=== PATIENT | male | born 1970 | race Caucasian/White ===

== ENCOUNTER 2016-04-17 08:17 | Inpatient (IN) | payer OTHER ==
[2016-04-17 09:04] VITALS: BMI 22.4
--- NOTE | 2016-04-17 13:12 | HP ---
COWS - Scale Resting Pulse: 1= MD 81-100 Sweatin= Chills/Flushing Restless Observation: 3= Extraneous Movement Pupil Size: 0= Normal to Room Light Bone or Joint Aches: 4=Acute Joint/Muscle Pain Runny Nose/ Eye Tearin= Runny Nose/Eyes GI Upset > 30mins: 3= Vomiting/Diarrhea Tremor Observation: 2= Slight Tremor Visible Yawning Observation: 2= >3x During Session Anxiety or Irritability: 2=Irritable/Anxious Goose Flesh Skin: 3=Piloerection COWS Score: 23 CIWA Score - CIWA Score Nausea/Vomitin-No Nausea/No Vomiting Muscle Tremors: 4-Moderate,w/Arms Extend Anxiety: 4-Mod. Anxious/Guarded Agitation: 4-Moderately Restless Paroxysmal Sweats: 1-Minimal Palms Moist Orientation: 0-Oriented Tacttile Disturbances: 3-Moderate Itch/Numb/Burn Auditory Disturbances: 0-None Visual Disturbances: 0-None Headache: 2-Mild CIWA-Ar Total Score: 18 Admission ROS S - HPI Chief Complaint: DETOX TX FOR ALCOHOL AND HEROIN DEPENDENCE Allergies/Adverse Reactions: Allergies Allergy/AdvReac Type Severity Reaction Status Date / Time haloperidol lactate Allergy Severe seizure Verified 04/17/16 09:47 [From [facility]] History of Present Illness: 45 Y/O MALE WITH A HX OF ALCOHOL, HEROIN,COCAINE AND MARIJUANA DEPENDENCE SEEKING DETOX TX Exam Limitations: No Limitations - Ebola screening Have you traveled outside of the country in the last 21 days: No Have you had contact with anyone from an Ebola affected area: No Have you been sick,other than usual withdrawal symptoms: No Do you have a fever: No - Review of Systems Constitutional: Chills, Loss of Appetite, Night Sweats, Changes in sleep, Unintentional Wgt. Loss EENT: reports: Blurred Vision, Tearing, Nose Congestion, Dental Problems ( MISSING TEETH) Respiratory: reports: No Symptoms reported, Shortness of Breath (ASTHMA HX), Wheezing Cardiac: reports: Lightheadedness GI: reports: Constipated, Diarrhea, Nausea, Poor Appetite, Poor Fluid Intake, Vomiting : reports: Dysuria Musculoskeletal: reports: Back Pain, Joint Pain, Muscle Pain Integumentary: reports: No Symptoms Reported Neuro: reports: Headache, Seizure, Tremors, Dizziness Endocrine: reports: No Symptoms Reported Hematology: reports: Anemia (HX) Psychiatric: reports: Orientated x3, Agitated, Anxious, Depressed Other Systems: Reviewed and Negative Patient History - Patient Medical History Hx Anemia: Yes (NO MEDS) Hx Asthma: Yes Hx Chronic Obstructive Pulmonary Disease (COPD): No Hx Cancer: No Hx Cardiac Disorders: No Hx Congestive Heart Failure: No Hx Hypertension: No Hx Hypercholesterolemia: Yes (SIMVASTATIN IN THE PAST. NO CURRENT MED) Hx Pacemaker: No HX Cerebrovascular Accident: No Hx Seizures: Yes Hx Dementia: No Hx Diabetes: No Hx Gastrointestinal Disorders: Yes (ACID REFLUX- TAKES MAALOX) Hx Liver Disease: No Hx Genitourinary Disorders: No Hx Sexually Transmitted Disorders: No (DENIES) Hx Renal Disease (ESRD): No Hx Thyroid Disease: Yes (ELEVATED THYROID HORMONE--TOOK MEDS IN THE PAST. PT STOPPED TAKING MED.) Hx Human Immunodeficiency Virus (HIV): No (NEGATIVE HX) Hx Hepatitis C: No Hx Depression: Yes (ON MED-SEROQUEL 50 MG HS) Hx Suicide Attempt: No (DENIES) Hx Bipolar Disorder: Yes Hx Schizophrenia: No - Patient Surgical History Past Surgical History: No Hx Neurologic Surgery: No Hx Cataract Extraction: No Hx Cardiac Surgery: No Hx Lung Surgery: No Hx Breast Surgery: No Hx Breast Biopsy: No Hx Abdominal Surgery: No Hx Appendectomy: No Hx Cholecystectomy: No Hx Genitourinary Surgery: No Hx Orthopedic Surgery: No Anesthesia Reaction: No - PPD History Previous Implant?: Yes Documented Results: Negative w/proof Implanted On Prior [facility] Admission?: Yes Date: 05/03/14 Results: 0 mm PPD to be Administered?: Yes - Reproductive History Patient is a Female of Child Bearing Age (11 -55 yrs old): No (MALE) - Smoking Cessation Smoking history: Current every day smoker Have you smoked in the past 12 months: Yes Aproximately how many cigarettes per day: 20 Cigars Per Day: 0 Hx Chewing Tobacco Use: No Initiated information on smoking cessation: Yes 'Breaking Loose' booklet given: 04/17/16 - Substance & Tx. History Hx Alcohol Use: Yes (VODKA/BEER) Hx Substance Use: Yes (HEROIN/COCAINE/MARIJUANA) Substance Use Type: None, Alcohol, Heroin Hx Substance Use Treatment: Yes ([facility]) - Substances Abused Heroin Route: Injection Frequency: Daily Amount used: 8-10 bags Age of first use: 31 Date of Last Use: 04/16/16 Cocaine Route: Inhalation Frequency: Daily Amount used: 2 gms. Age of first use: 19 Date of Last Use: 04/16/16 Alcohol-vodka/beer Route: Oral Frequency: Daily Amount used: 2 pts./3-6 pks. Age of first use: 19 Date of Last Use: 04/16/16 Family Disease History - Family Disease History Family Disease History: Respiratory: Father (asthma , alcohol), Other: Father, Mother (depression) Admission Physical Exam [facility] - Vital Signs Vital Signs: Vital Signs - 24 hr 04/17/16 09:01 Temperature 95.5 F L Pulse Rate 83 Respiratory 18 Rate Blood Pressure 132/89 - Physical General Appearance: Yes: Moderate Distress, Irritable, Anxious HEENTM: Yes: EOMI, Normocephalic, BETTY, Pharynx Normal, Nasal Congestion, Rhinorrhea Respiratory: Yes: Chest Non-Tender, No Respiratory Distress, Rhonchi, Wheezing, Expiration Neck: Yes: No masses,lesions,Nodules, Supple, Trachea in good position Breast: Yes: Breast Exam Deferred Cardiology: Yes: Regular Rhythm, Regular Rate, S1, S2 Abdominal: Yes: Normal Bowel Sounds, Non Tender, Soft Genitourinary: Yes: Other (N/C) Back: Yes: Within Normal Limits Musculoskeletal: Yes: full range of Motion, Gait Steady Extremities: Yes: Normal Range of Motion, Non-Tender, Tremors Neurological: Yes: 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 NML intact, Fully Oriented, Alert Integumentary: Yes: Normal Color, Dry, Warm Lymphatic: Yes: Within Normal Limits - Diagnostic (1) Alcohol dependence Current Visit: No Status: Acute Qualifiers: Substance use status: uncomplicated Qualified Code(s): F10.20 - Alcohol dependence, uncomplicated (2) Alcohol dependence with uncomplicated withdrawal Current Visit: Yes Status: Acute (3) Opioid dependence with withdrawal Current Visit: Yes Status: Acute (4) Asthma Current Visit: Yes Status: Chronic Qualifiers: Asthma severity: mild intermittent Asthma complication type: uncomplicated Qualified Code(s): J45.20 - Mild intermittent asthma, uncomplicated Comment: mild wheezing leann (5) Cocaine dependence with withdrawal Current Visit: Yes Status: Acute (6) GERD (gastroesophageal reflux disease) Current Visit: Yes Status: Chronic Qualifiers: Esophagitis presence: without esophagitis Qualified Code(s): K21.9 - Gastro-esophageal reflux disease without esophagitis (7) Nicotine dependence Current Visit: Yes Status: Acute Qualifiers: Nicotine product type: cigarettes Substance use status: in withdrawal Qualified Code(s): F17.213 - Nicotine dependence, cigarettes, with withdrawal (8) History of hypothyroidism Current Visit: Yes Status: Suspected Comment: in history but patient cannot remember (9) Hypercholesterolemia Current Visit: Yes Status: Suspected (10) Cannabis dependence, uncomplicated Current Visit: Yes Status: Acute Cleared for Admission S - Detox or Rehab [facility] Level of Care: Medically Managed Detox Regimen/Protocol: Methadone/Valium S Breath Alcohol Content Breath Alcohol Content: 0 Urine Drug Screen - Results Drug Screen Negative: No Urine Drug Screen Results: THC-Marijuana, BELLE-Cocaine, OPI-Opiates, TCA- Tricyclic Antidepress, OXY-Oxycodone
[2016-04-17] MEDS ORDERED: MAGNESIUM HYDROX 2400MG/30ML ORAL SUSPENSION 30 ML CUP PO PRN (13:21)
[2016-04-17] MEDS ORDERED: NICOTINE POLACRILEX 4 MG GUM BUC PRN (13:21)
[2016-04-17] MEDS ORDERED: MENTHOL/PHENOL 1 EACH UD MM PRN (13:21)
[2016-04-17] MEDS ORDERED: hydrOXYzine PAMOATE 25 MG CAPSULE (FP) PO PRN (13:21)
[2016-04-17] MEDS ORDERED: P-EPHED 60MG/TRIPROLIDI 2.5MG TABLET PO PRN (13:21)
[2016-04-17] MEDS ORDERED: MAG HYDROX/AL HYDROX/SIMETH 30 ML UNIT-DOSE CUP PO PRN (13:21)
[2016-04-17] MEDS ORDERED: MAGNESIUM CITRATE 300 ML BOTTLE PO PRN (13:21)
[2016-04-17] MEDS ORDERED: guaiFENesin/D-METHORPHAN HB 10 ML UNIT-DOSE CUPS PO PRN (13:21)
[2016-04-17] MEDS ORDERED: ACETAMINOPHEN 325 MG TABLET (FP) PO PRN (13:21)
[2016-04-17] MEDS ORDERED: LOPERAMIDE HCL 2 MG CAPSULE PO PRN (13:21)
[2016-04-17] MEDS ORDERED: ALBUTEROL SO4 6.7 GM HFA INHALER IH PRN (13:24)
[2016-04-17] MEDS ORDERED: ALBUTEROL SO4 2.5/IPRATROPIUM 0.5 INH SOL 3 ML VIAL.NEB. NEB PRN (13:27)
[2016-04-17] MEDS ORDERED: diazePAM 5 MG TABLET PO ONE (13:47)
[2016-04-17] MEDS ORDERED: METHADONE HCL 10 MG TABLET (FOR DETOX USE ONLY) PO ONE ×2 (13:49→23:00)
[2016-04-17] MEDS: GABAPENTIN 300 MG CAPSULE (FP) PO SCH ×2 (13:57→22:17)
[2016-04-17] MEDS: diazePAM 5 MG TABLET PO SCH ×2 (13:59→22:17)
[2016-04-17] MEDS: ALBUTEROL SO4 2.5/IPRATROPIUM 0.5 INH SOL 3 ML VIAL.NEB. NEB SCH ×3 (14:35→22:35)
[2016-04-17 14:51] LABS: HIV 1 & 2 AB NEGATIVE; HIV 1 AGp24 NEGATIVE
[2016-04-17] MEDS: BUDESONIDE/FORMETEROL FUMARATE 80/4.5 mcg INHALER IH SCH ×2 (14:56→22:16)
[2016-04-17] MEDS: NICOTINE 21 MG/24 HOURS TOPICAL PATCH TD SCH (14:56)
[2016-04-17 19:45] LABS: URINE APPEARANCE SLCLOUDY; URINE BILIRUBIN NEGATIVE (NEGATIVE); URINE BLOOD NEGATIVE (NEGATIVE); URINE COLOR YELLOW; URINE GLUCOSE (UA) NEGATIVE (NEGATIVE); URINE KETONE NEGATIVE (NEGATIVE); URINE LEUK ESTERASE NEGATIVE (NEGATIVE); URINE NITRITE NEGATIVE (NEGATIVE); URINE PROTEIN NEGATIVE (NEGATIVE); URINE UROBILINOGEN NEGATIVE E.U./dl (0.2-1.0)
[2016-04-17] MEDS: IBUPROFEN 400 MG TABLET (FP) PO PRN (19:45)
[2016-04-17] MEDS: diazePAM 5 MG TABLET PO PRN (19:46)
[2016-04-17] MEDS: THIAMINE HCL 100 MG TABLET (FP) PO SCH (22:17)
[2016-04-17] MEDS: diphenhydrAMINE HCL 50 MG CAPSULE PO PRN (22:18)
[2016-04-18] MEDS: diazePAM 5 MG TABLET PO PRN ×2 (02:35→19:13)
[2016-04-18] MEDS: diazePAM 5 MG TABLET PO SCH ×3 (05:32→22:12)
[2016-04-18] MEDS: GABAPENTIN 300 MG CAPSULE (FP) PO SCH ×3 (05:32→22:12)
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
[2016-04-18] MEDS ORDERED: METHADONE HCL 10 MG TABLET (FOR DETOX USE ONLY) PO SCH (10:00)
[2016-04-18] MEDS: PRENATAL VITAMINS W/ FOLIC ACID TABLET (FP) PO SCH (10:09)
[2016-04-18] MEDS: BUDESONIDE/FORMETEROL FUMARATE 80/4.5 mcg INHALER IH SCH ×2 (10:09→23:03)
[2016-04-18] MEDS: NICOTINE 21 MG/24 HOURS TOPICAL PATCH TD SCH (10:10)
[2016-04-18 10:15] LABS: MCH 28.1 pg (25.7-33.7); MEAN CELL VOLUME 85.1 fl (80-96); MEAN PLT VOLUME 7.7 fl (7.5-11.1); PLATELET COUNT 291 K/MM3 (134-434); RDW 13.5 % (11.9-15.9); WHITE BLOOD COUNT 7.3 K/mm3 (4.0-10.0)
[2016-04-18] MEDS: ALBUTEROL SO4 2.5/IPRATROPIUM 0.5 INH SOL 3 ML VIAL.NEB. NEB SCH ×4 (10:20→23:03)
[2016-04-18 10:36] LABS: ALBUMIN 4.2 g/dl (3.4-5.0); ALK PHOS 131 U/L (45-117); ANION GAP 10 (8-16); BILIRUBIN,TOTAL 0.5 mg/dL (0.2-1.0); CALCIUM 9.3 mg/dL (8.5-10.1); CO2 31 mmol/L (21-32); CREATININE 0.9 mg/dL (0.7-1.3); GLUCOSE,RANDOM 83 mg/dL (74-106); SGOT/AST 33 U/L (15-37); SGPT/ALT 66 U/L (12-78); TOT PROT 7.3 g/dl (6.4-8.2)
--- NOTE | 2016-04-18 10:48 | PN ---
[facility] CIWA - CIWA Score Nausea/Vomitin-No Nausea/No Vomiting Muscle Tremors: 4-Moderate,w/Arms Extend Anxiety: 4-Mod. Anxious/Guarded Agitation: 4-Moderately Restless Paroxysmal Sweats: 3 Orientation: 0-Oriented Tacttile Disturbances: 0-None Auditory Disturbances: 0-None Visual Disturbances: 0-None Headache: 0-None Present CIWA-Ar Total Score: 15 [facility] COWS - Scale Resting Pulse: 1= [place] 81-100 Sweatin=Flushed/Facial Moisture Restless Observation: 1= Difficult to Sit Still Pupil Size: 0= Normal to Room Light Bone or Joint Aches: 2= Severe Diffuse Aches Runny Nose/ Eye Tearin= Runny Nose/Eyes GI Upset > 30mins: 2= Nausea/Diarrhea Tremor Observation of Outstretched Hands: 2= Slight Tremor Visible Yawning Observation: 1= 1-2x During Session Anxiety or Irritability: 2=Irritable/Anxious Goose Flesh Skin: 0=Smooth Skin COWS Score: 15 [facility] Progress Note (SOAP) Subjective: Anxiety,tremors,sweating,interrupted sleep,restless Objective: 04/18/16 10:47 Last Vital Signs Temp Pulse Resp BP Pulse Ox 96.3 F L 89 18 120/78 04/18/16 06:22 04/18/16 09:30 04/18/16 09:30 04/18/16 09:30 Laboratory Tests 04/17/16 04/17/16 04/18/16 11:00 13:00 06:00 WBC 7.3 RBC 5.61 H Hgb 15.8 Hct 47.8 MCV 85.1 MCHC 33.0 RDW 13.5 Plt Count 291 MPV 7.7 Urine Color Yellow Urine Appearance Slcloudy Urine pH 5.0 Ur Specific [place] 1.028 Urine Protein Negative Urine Glucose (UA) Negative Urine Ketones Negative Urine Blood Negative Urine Nitrite Negative Urine Bilirubin Negative Urine Urobilinogen Negative Ur Leukocyte Esterase Negative HIV 1&2 Antibody Screen Negative HIV P24 Antigen Negative labs noted Assessment: 04/18/16 10:47 withdrawal sx. Plan: continue detox
--- NOTE | 2016-04-18 11:10 | EKG ---
Test Reason : Blood Pressure : / mmHG Vent. Rate : 072 BPM Atrial Rate : 072 BPM P-R Int : 172 ms QRS Dur : 098 ms QT Int : 416 ms P-R-T Axes : 034 095 064 degrees QTc Int : 455 ms NORMAL SINUS RHYTHM CANNOT RULE OUT INFERIOR INFARCT , AGE UNDETERMINED WHEN COMPARED WITH ECG OF 17-APR-2016 13:42, NO SIGNIFICANT CHANGE WAS FOUND Confirmed by VANNESSA CARLOS MD ([id number]) on 04/18/2016 11:09:54 AM Referred By: Confirmed By:VANNESSA CARLOS MD
--- NOTE | 2016-04-18 11:15 | EKG ---
Test Reason : Blood Pressure : / mmHG Vent. Rate : 083 BPM Atrial Rate : 083 BPM P-R Int : 168 ms QRS Dur : 094 ms QT Int : 394 ms P-R-T Axes : 029 096 072 degrees QTc Int : 462 ms NORMAL SINUS RHYTHM RIGHTWARD AXIS ST ELEVATION, CONSIDER EARLY REPOLARIZATION, PERICARDITIS, OR INJURY ABNORMAL ECG NO PREVIOUS ECGS AVAILABLE Confirmed by VANNESSA CARLOS MD ([id number]) on 04/18/2016 11:15:37 AM Referred By: Confirmed By:VANNESSA CARLOS MD
[2016-04-18] MEDS: IBUPROFEN 400 MG TABLET (FP) PO PRN ×2 (13:53→19:14)
[2016-04-18] MEDS: THIAMINE HCL 100 MG TABLET (FP) PO SCH (22:12)
[2016-04-18] MEDS: QUEtiapine FUMARATE 50 MG TABLET PO SCH (22:12)
[2016-04-18] MEDS: diphenhydrAMINE HCL 50 MG CAPSULE PO PRN (22:13)
[2016-04-19] MEDS: diazePAM 5 MG TABLET PO PRN ×2 (05:34→20:16)
[2016-04-19] MEDS: GABAPENTIN 300 MG CAPSULE (FP) PO SCH ×3 (05:34→22:25)
[2016-04-19] MEDS: IBUPROFEN 400 MG TABLET (FP) PO PRN (05:35)
[2016-04-19] MEDS ORDERED: METHADONE HCL 5 MG TABLET (FOR DETOX USE ONLY) PO SCH (10:00)
[2016-04-19] MEDS: PRENATAL VITAMINS W/ FOLIC ACID TABLET (FP) PO SCH (10:29)
[2016-04-19] MEDS: NICOTINE 21 MG/24 HOURS TOPICAL PATCH TD SCH (10:31)
[2016-04-19] MEDS: ALBUTEROL SO4 2.5/IPRATROPIUM 0.5 INH SOL 3 ML VIAL.NEB. NEB SCH ×4 (10:31→22:25)
[2016-04-19] MEDS: BUDESONIDE/FORMETEROL FUMARATE 80/4.5 mcg INHALER IH SCH ×2 (10:31→22:24)
[2016-04-19] MEDS: diazePAM 5 MG TABLET PO SCH ×2 (10:32→22:24)
--- NOTE | 2016-04-19 13:23 | EKG ---
Test Reason : Blood Pressure : / mmHG Vent. Rate : 070 BPM Atrial Rate : 070 BPM P-R Int : 180 ms QRS Dur : 094 ms QT Int : 396 ms P-R-T Axes : 050 091 063 degrees QTc Int : 427 ms NORMAL SINUS RHYTHM EARLY REPOLARIZATION BORDERLINE ECG WHEN COMPARED WITH ECG OF 18-APR-2016 07:38, NO SIGNIFICANT CHANGE WAS FOUND Confirmed by FLACA ALVAREZ MD ([id number]) on 04/19/2016 1:23:03 PM Referred By: Confirmed By:FLACA ALVAREZ MD
--- NOTE | 2016-04-19 14:09 | PN ---
S CIWA - CIWA Score Nausea/Vomitin Muscle Tremors: 2 Anxiety: 4-Mod. Anxious/Guarded Agitation: 4-Moderately Restless Paroxysmal Sweats: 2 Orientation: 0-Oriented Tacttile Disturbances: 3-Moderate Itch/Numb/Burn Auditory Disturbances: 0-None Visual Disturbances: 0-None Headache: 3-Moderate CIWA-Ar Total Score: 23 BHS COWS - Scale Resting Pulse: 1= [place] 81-100 Sweatin= Chills/Flushing Restless Observation: 1= Difficult to Sit Still Pupil Size: 0= Normal to Room Light Bone or Joint Aches: 2= Severe Diffuse Aches Runny Nose/ Eye Tearin= None GI Upset > 30mins: 2= Nausea/Diarrhea Tremor Observation of Outstretched Hands: 2= Slight Tremor Visible Yawning Observation: 0= None Anxiety or Irritability: 2=Irritable/Anxious Goose Flesh Skin: 3=Piloerection COWS Score: 14 [facility] Progress Note (SOAP) Subjective: Interrupted sleep, Nausea, Body aches, Sweating, Tremors, H/A. Objective: PT. A & O X 3, OBSERVED AMBULATING ON UNIT. 04/19/16 14:07 Vital Signs Temperature 96.4 F L 04/19/16 10:58 Pulse Rate 87 04/19/16 10:58 Respiratory Rate 20 04/19/16 10:58 Blood Pressure 126/81 04/19/16 10:58 O2 Sat by Pulse Oximetry (%) Laboratory Last Values WBC 7.3 K/mm3 (4.0-10.0) 04/18/16 06:00 RBC 5.61 M/mm3 (4.00-5.60) H 04/18/16 06:00 Hgb 15.8 GM/dL (11.7-16.9) 04/18/16 06:00 Hct 47.8 % (35.4-49) 04/18/16 06:00 MCV 85.1 fl (80-96) 04/18/16 06:00 MCHC 33.0 g/dl (32.0-35.9) 04/18/16 06:00 RDW 13.5 % (11.9-15.9) 04/18/16 06:00 Plt Count 291 K/MM3 (134-434) 04/18/16 06:00 MPV 7.7 fl (7.5-11.1) 04/18/16 06:00 Sodium 137 mmol/L (136-145) 04/18/16 06:00 Potassium 4.6 mmol/L (3.5-5.1) 04/18/16 06:00 Chloride 96 mmol/L (98-107) L 04/18/16 06:00 Carbon Dioxide 31 mmol/L (21-32) 04/18/16 06:00 Anion Gap 10 (8-16) 04/18/16 06:00 BUN 15 mg/dL (7-18) 04/18/16 06:00 Creatinine 0.9 mg/dL (0.7-1.3) 04/18/16 06:00 Creat Clearance w eGFR > 60 (>60) 04/18/16 06:00 Random Glucose 83 mg/dL (74-106) 04/18/16 06:00 Calcium 9.3 mg/dL (8.5-10.1) 04/18/16 06:00 Total Bilirubin 0.5 mg/dL (0.2-1.0) D 04/18/16 06:00 AST 33 U/L (15-37) D 04/18/16 06:00 ALT 66 U/L (12-78) 04/18/16 06:00 Alkaline Phosphatase 131 U/L (45-117) H D 04/18/16 06:00 Total Protein 7.3 g/dl (6.4-8.2) 04/18/16 06:00 Albumin 4.2 g/dl (3.4-5.0) 04/18/16 06:00 Urine Color Yellow 04/17/16 13:00 Urine Appearance Slcloudy 04/17/16 13:00 Urine pH 5.0 (5.0-8.0) 04/17/16 13:00 Ur Specific [place] 1.028 (1.001-1.035) 04/17/16 13:00 Urine Protein Negative (NEGATIVE) 04/17/16 13:00 Urine Glucose (UA) Negative (NEGATIVE) 04/17/16 13:00 Urine Ketones Negative (NEGATIVE) 04/17/16 13:00 Urine Blood Negative (NEGATIVE) 04/17/16 13:00 Urine Nitrite Negative (NEGATIVE) 04/17/16 13:00 Urine Bilirubin Negative (NEGATIVE) 04/17/16 13:00 Urine Urobilinogen Negative E.U./dl (0.2-1.0) 04/17/16 13:00 Ur Leukocyte Esterase Negative (NEGATIVE) 04/17/16 13:00 RPR Titer Nonreactive (NONREACTIVE) 04/18/16 06:00 HIV 1&2 Antibody Screen Negative 04/17/16 11:00 HIV P24 Antigen Negative 04/17/16 11:00 LABS NOTED. Assessment: 04/19/16 14:08 WITHDRAWAL SYMPTOMS. Plan: CONTINUE DETOX. ADVISED PATIENT TO FOLLOW-UP WITH [facility] AFTER DISCHARGE FROM DETOX FOR GENERAL MEDICAL ASSESSMENT AND FOR ABNORMAL LAB VALUES.
[2016-04-19] MEDS: diphenhydrAMINE HCL 50 MG CAPSULE PO PRN (22:24)
[2016-04-19] MEDS: THIAMINE HCL 100 MG TABLET (FP) PO SCH (22:24)
[2016-04-19] MEDS: QUEtiapine FUMARATE 50 MG TABLET PO SCH (22:25)
[2016-04-19 22:31] VITALS: BP 114/77; PULSE 78; TEMP 98.2
[2016-04-20] MEDS: GABAPENTIN 300 MG CAPSULE (FP) PO SCH (06:19)
--- NOTE | 2016-04-20 10:02 | DS ---
[facility] Detox Discharge Summary Admission Date: 04/17/16 Discharge Date: 04/20/16 - History Present History: Alcohol Dependence, Cannabis Dependence, Cocaine Dependence, Opioid Dependence, Sedative Dependence Pertinent Past History: Asthma GERD Scoliosis - Physical Exam Results Vital Signs: Vital Signs Temperature 98.2 F 04/19/16 22:31 Pulse Rate 78 04/19/16 22:31 Respiratory Rate 18 04/20/16 06:30 Blood Pressure 114/77 04/19/16 22:31 O2 Sat by Pulse Oximetry (%) Pertinent Admission Physical Exam Findings: Withdrawal sx. Laboratory Last Values WBC 7.3 K/mm3 (4.0-10.0) 04/18/16 06:00 RBC 5.61 M/mm3 (4.00-5.60) H 04/18/16 06:00 Hgb 15.8 GM/dL (11.7-16.9) 04/18/16 06:00 Hct 47.8 % (35.4-49) 04/18/16 06:00 MCV 85.1 fl (80-96) 04/18/16 06:00 MCHC 33.0 g/dl (32.0-35.9) 04/18/16 06:00 RDW 13.5 % (11.9-15.9) 04/18/16 06:00 Plt Count 291 K/MM3 (134-434) 04/18/16 06:00 MPV 7.7 fl (7.5-11.1) 04/18/16 06:00 Sodium 137 mmol/L (136-145) 04/18/16 06:00 Potassium 4.6 mmol/L (3.5-5.1) 04/18/16 06:00 Chloride 96 mmol/L (98-107) L 04/18/16 06:00 Carbon Dioxide 31 mmol/L (21-32) 04/18/16 06:00 Anion Gap 10 (8-16) 04/18/16 06:00 BUN 15 mg/dL (7-18) 04/18/16 06:00 Creatinine 0.9 mg/dL (0.7-1.3) 04/18/16 06:00 Creat Clearance w eGFR > 60 (>60) 04/18/16 06:00 Random Glucose 83 mg/dL (74-106) 04/18/16 06:00 Calcium 9.3 mg/dL (8.5-10.1) 04/18/16 06:00 Total Bilirubin 0.5 mg/dL (0.2-1.0) D 04/18/16 06:00 AST 33 U/L (15-37) D 04/18/16 06:00 ALT 66 U/L (12-78) 04/18/16 06:00 Alkaline Phosphatase 131 U/L (45-117) H D 04/18/16 06:00 Total Protein 7.3 g/dl (6.4-8.2) 04/18/16 06:00 Albumin 4.2 g/dl (3.4-5.0) 04/18/16 06:00 Urine Color Yellow 04/17/16 13:00 Urine Appearance Slcloudy 04/17/16 13:00 Urine pH 5.0 (5.0-8.0) 04/17/16 13:00 Ur Specific [place] 1.028 (1.001-1.035) 04/17/16 13:00 Urine Protein Negative (NEGATIVE) 04/17/16 13:00 Urine Glucose (UA) Negative (NEGATIVE) 04/17/16 13:00 Urine Ketones Negative (NEGATIVE) 04/17/16 13:00 Urine Blood Negative (NEGATIVE) 04/17/16 13:00 Urine Nitrite Negative (NEGATIVE) 04/17/16 13:00 Urine Bilirubin Negative (NEGATIVE) 04/17/16 13:00 Urine Urobilinogen Negative E.U./dl (0.2-1.0) 04/17/16 13:00 Ur Leukocyte Esterase Negative (NEGATIVE) 04/17/16 13:00 RPR Titer Nonreactive (NONREACTIVE) 04/18/16 06:00 HIV 1&2 Antibody Screen Negative 04/17/16 11:00 HIV P24 Antigen Negative 04/17/16 11:00 labs noted - Medication Discharge Medications: Ambulatory Orders Albuterol Sulfate Inhaler - [Ventolin HFA Inhaler -] 2 inh PO Q4H PRN #1 cartridge 03/15/15 Gabapentin [Neurontin -] 300 mg PO TID capsule 03/22/15 Quetiapine Fumarate [Seroquel -] 50 mg PO HS 04/17/16 Quetiapine Fumarate [Seroquel -] 50 mg PO HS #30 tablet 04/18/16 - Diagnosis (1) Alcohol dependence with uncomplicated withdrawal Current Visit: Yes Status: Acute (2) Bipolar disorder Current Visit: Yes Status: Acute (3) Cannabis dependence, uncomplicated Current Visit: Yes Status: Acute (4) Cocaine dependence with withdrawal Current Visit: Yes Status: Acute (5) Nicotine dependence Current Visit: Yes Status: Acute Qualifiers: Nicotine product type: cigarettes Substance use status: in withdrawal Qualified Code(s): F17.213 - Nicotine dependence, cigarettes, with withdrawal (6) Opioid dependence with withdrawal Current Visit: Yes Status: Acute (7) Sedative hypnotic or anxiolytic dependence Current Visit: Yes Status: Acute (8) Asthma Current Visit: Yes Status: Chronic Qualifiers: Asthma severity: mild intermittent Asthma complication type: uncomplicated Qualified Code(s): J45.20 - Mild intermittent asthma, uncomplicated (9) GERD (gastroesophageal reflux disease) Current Visit: Yes Status: Chronic Qualifiers: Esophagitis presence: without esophagitis Qualified Code(s): K21.9 - Gastro-esophageal reflux disease without esophagitis (10) PTSD (post-traumatic stress disorder) Current Visit: Yes Status: Chronic (11) Substance-induced sleep disorder Current Visit: Yes Status: Chronic (12) OCD (obsessive compulsive disorder) Current Visit: No Status: Chronic (13) Scoliosis Current Visit: No Status: Chronic Qualifiers: Scoliosis type: unspecified scoliosis Spinal region: lumbar Qualified Code(s): M41.9 - Scoliosis, unspecified (14) Substance induced mood disorder Current Visit: No Status: Chronic - AMA Did Patient Leave Against Medical Advice: No (non-comliance with unit's rules)
[2016-04-21] MEDS ORDERED: METHADONE HCL 10 MG TABLET (FOR DETOX USE ONLY) PO SCH (10:00)
[2016-04-21] MEDS ORDERED: diazePAM 5 MG TABLET PO SCH (10:00)
[2016-04-22] MEDS ORDERED: METHADONE HCL 5 MG TABLET (FOR DETOX USE ONLY) PO SCH (06:00)
== END 2016-04-20 09:43 | disposition home or self-care (01) | DRG 773 ==
LOC: YASAS 08:17 → Y3N 12:27
PROVIDERS: ADMIT Internal Medicine; ATTEND Internal Medicine
PROC: HZ2ZZZZ Detoxification Services for Substance Abuse Treatment (ICD-10-PCS; principal; 2016-04-20)
DX: F11.23 Opioid dependence with withdrawal (principal); F13.20 Sedative, hypnotic or anxiolytic dependence, uncomplicated; F10.230 Alcohol dependence with withdrawal, uncomplicated; F14.23 Cocaine dependence with withdrawal; F12.20 Cannabis dependence, uncomplicated; F19.24 Other psychoactive substance dependence with psychoactive substance-induced mood disorder; F19.282 Other psychoactive substance dependence with psychoactive substance-induced sleep disorder; F43.10 Post-traumatic stress disorder, unspecified; F42.9 Obsessive-compulsive disorder, unspecified; F31.9 Bipolar disorder, unspecified; M41.9 Scoliosis, unspecified; K21.9 Gastro-esophageal reflux disease without esophagitis; J45.20 Mild intermittent asthma, uncomplicated
CPT/HCPCS: 36415; 80053; 81003; 85027; 86593; 87389; 93005; 93010; 94640